=== PATIENT | female | born 1990 | race Caucasian/White ===

== ENCOUNTER 2017-06-13 02:20 | Emergency (ER) | payer OTHER | END 2017-06-13 04:30 | disposition home or self-care (01) | LOC: FTE 02:20 | DX: O99.89 Other specified diseases and conditions complicating pregnancy, childbirth and the puerperium (principal); H60.92 Unspecified otitis externa, left ear; Z3A.12 12 weeks gestation of pregnancy | CPT/HCPCS: 99283; Z7502 ==